=== PATIENT | female | born 1970 ===

== ENCOUNTER 2017-11-20 11:51 | Inpatient (IN) | payer OTHER ==
[~2017-11-20] VITALS: Ht 165.1 cm; Wt 88.5 kg
[2017-11-20] MEDS ORDERED: LISINOPRIL-HCT1 EAC2 PO (13:11)
[2017-11-20] MEDS ORDERED: METOPROLOL SUCC25 MG PO (13:12)
[2017-11-20] MEDS ORDERED: SINGULAIR 10MG10 MG PO (13:12)
[2017-11-23] MEDS ORDERED: CHOLESTYRAMINE P4 GM PO (12:27)
[2017-11-23] MEDS ORDERED: HYOSCYAMINE0.125 M1 SL (12:27)
[2017-11-23] MEDS ORDERED: IMODIUM A-D2 M2 PO (12:28)
[2017-11-23] MEDS ORDERED: INTESTINEX680 M1 PO (12:30)
== END 2017-11-23 17:30 | disposition home or self-care (01) | DRG 378 ==
LOC: ER 11:51 → SEC-K 11-21 08:22 → SURG 11-21 08:22
PROVIDERS: Surgery
PROC: 02HV33Z Insertion of Infusion Device into Superior Vena Cava, Percutaneous Approach (ICD-10-PCS; 2017-11-21)
PROC: 3E0T3BZ Introduction of Anesthetic Agent into Peripheral Nerves and Plexi, Percutaneous Approach (ICD-10-PCS; 2017-11-23)
PROC: 0UJMXZZ Inspection of Vulva, External Approach (ICD-10-PCS; 2017-11-23)
PROC: 0DBP8ZX Excision of Rectum, Via Natural or Artificial Opening Endoscopic, Diagnostic (ICD-10-PCS; 2017-11-23)
PROC: 0DBN8ZX Excision of Sigmoid Colon, Via Natural or Artificial Opening Endoscopic, Diagnostic (ICD-10-PCS; 2017-11-23)
PROC: 0DBQ8ZX Excision of Anus, Via Natural or Artificial Opening Endoscopic, Diagnostic (ICD-10-PCS; 2017-11-23)
PROC: 0DJD7ZZ Inspection of Lower Intestinal Tract, Via Natural or Artificial Opening (ICD-10-PCS; principal; 2017-11-23 15:45)
DX: K92.2 Gastrointestinal hemorrhage, unspecified (principal); D68.61 Antiphospholipid syndrome; A04.8 Other specified bacterial intestinal infections; I10 Essential (primary) hypertension; J45.998 Other asthma; D50.0 Iron deficiency anemia secondary to blood loss (chronic); N81.6 Rectocele; K58.0 Irritable bowel syndrome with diarrhea; B95.61 Methicillin susceptible Staphylococcus aureus infection as the cause of diseases classified elsewhere